=== PATIENT | male | born 1970 | race Caucasian/White ===

== ENCOUNTER → 2024-06-28 | Outpatient (CLI) | payer OTHER ==
--- NOTE | 2024-06-30 15:28 | MR ---
EXAMINATION TYPE: MR brain/cspine wo DATE OF EXAM: 06/28/2024 1:32 PM COMPARISON: None. 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 Hx fall, hit back of head 5 mos ago. TECHNIQUE: Multiplanar, multiecho imaging on a 3.0 Erma magnet is performed through the brain. Stud y is performed within 24 hours of arrival to the hospital.Multiplanar, multiecho imaging on a 3.0 Rosemarie la magnet is performed through the knee. IV Contrast: mL (None, if empty) FINDINGS: The craniovertebral junction is normal. The pituitary is normal. Optic chiasm appears normal Diffusion-weighted imaging is performed. No abnormal hyperintensity is present to suggest an acute i ntracranial infarct or acute ischemic change. There are scattered punctate areas of hyperintensity on T2 and Inversion Recovery weighted sequences which are non-specific but can be related to microvascular ischemic changes. Ventricles and sulci are appropriate for the patient age. Small amount of mucosal thickening or retention cysts within the maxillary sinuses. Mastoid air cells are clear. Mild coast thickening in ethmoid air cells. Frontal sinuses appear clear sphenoid sinuses are clear IMPRESSION: 1. No acute intracranial process. EXAMINATION TYPE: MR brain/cspine wo DATE OF EXAM: 06/28/2024 1:32 PM COMPARISON: None. 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 Hx fall, hit back of head 5 mos ago. TECHNIQUE: Multiplanar multiecho imaging on a 3.0 Erma magnet is performed through the cervical spin e. IV Contrast: mL (None, if empty) FINDINGS: The craniovertebral junction is normal. Vertebral body alignment is normal. C7-T1: No focal disc herniation or significant disc bulge is evident. No spinal canal stenosis or n eural foraminal stenosis is present. C6-7: There is a moderate to large right paracentral disc herniation with moderate thecal sac markus sunny. Cord flattening is present and displacement towards the left. Correlate with left foraminal sev ere stenosis. Right foramen is patent. Some subligamentous disc extension centrally may be present C5-6: Small left paracentral disc bulge is present with moderate anterior thecal sac impression. This has cord contact and mild cord deformity. No AP spinal canal stenosis is present. Neural foramen hav e mild narrowing on the right and appears patent on the left. C4-5: Small central focal bulge is present with mild anterior thecal sac compression. No cord contact or cord deformity evident. No spinal canal stenosis or neural foraminal stenosis. C3-4: No focal disc herniation or significant disc bulge is evident. No spinal canal stenosis or tamara ral foraminal stenosis is present. C2-3: No focal disc herniation or significant disc bulge is evident. No spinal canal stenosis or tamara ral foraminal stenosis is present. IMPRESSION: 1. 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 Cord deformi ty is present. Correlate with right radicular symptoms. 2. Left paracentral disc herniation C5-6 with mild anterior thecal sac compression and no stenosis pr esent 3. Small central focal bulge C4-5. No stenosis evident. [facility], , 06/30/2024 3:26 PM
== END | disposition home or self-care (01) ==
LOC: RADMRIMAIN 12:23
PROVIDERS: ATTEND Psychiatry & Neurology Neurology
DX: M50.223 Other cervical disc displacement at C6-C7 level (principal); G25.2 Other specified forms of tremor
CPT/HCPCS: 70551; 72141